=== PATIENT | female | born 1985 | race Hispanic/Latino ===

== ENCOUNTER 2021-05-20 14:37 | Inpatient (IN) | payer MEDICAID, SELFPAY ==
[2021-05-20 15:17] VITALS: BMI 29.0
[2021-05-20] MEDS ORDERED: Acetaminophen/Codeine 30-300mg Tablet PO PRN (15:27)
[2021-05-20] MEDS ORDERED: Ondansetron PF 4 MG/2 ML Vial IVP PRN (15:27)
[2021-05-20] MEDS ORDERED: Ibuprofen 800 MG TAB PO PRN (15:27)
[2021-05-20] MEDS ORDERED: Lidocaine 1% (PF) 30 ML VIAL SC PRN (15:27)
[2021-05-20] MEDS ORDERED: hydrALAZINE 20 MG/ML VIAL SLOW IVP PRN ×2 (15:27→20:45)
[2021-05-20] MEDS ORDERED: Promethazine HCl 25 MG/ML VIAL IM PRN (15:27)
[2021-05-20] MEDS ORDERED: Lactated Ringer's 1,000 ML IV SCH (15:30)
[2021-05-20] MEDS ORDERED: NS w/ Oxytocin 30 units 500 ML IV SCH (15:30)
[2021-05-20 15:49] LABS: Hemoglobin 12.8 g/dL (12.0-15.5); Mean Corpuscular HGB CONC 32.7 g/dL (32.0-36.0); Mean Corpuscular Hemoglobin 29.9 pg (27.0-33.0); Mean Corpuscular Volume 91.4 fl (81.6-98.3); Mean Platelet Volume 10.6 fl (7.4-10.4); Platelet Count 311 10x3/uL (150-450); RBC Distribution Width 14.3 % (11.5-14.5); Red Blood Cell (RBC) Count 4.28 10x6/uL (3.90-5.03); White Blood Cell (WBC) Count 16.4 10x3/uL (3.5-10.5)
[2021-05-20 16:15] LABS: Hep B Surf Ag Non-Reactive S/CO (NonReactive)
[2021-05-20 16:16] LABS: Syphilis Antibody Nonreactive (Nonreactive); Syphilis Antibody Index 0.05 S/CO (<1.00 Non-Reactive)
[2021-05-20 17:20] LABS: HBSAg Index 0.24 S/CO (0-0.99)
[2021-05-20 18:49] LABS: SARS-CoV-2 NAA Rapid Test Not Detected (NotDetected)
[2021-05-20] MEDS ORDERED: Boostrix 0.5 ML (Tdap) VIAL IM ONE (20:45)
[2021-05-20] MEDS ORDERED: Lanolin Ointment 7 GM TUBE TOP PRN (20:45)
[2021-05-20] MEDS ORDERED: Preparation H Ointment 28 GM TUBE PR PRN (20:45)
[2021-05-20] MEDS ORDERED: Bisacodyl 10 MG SUPP PR PRN (20:45)
[2021-05-20] MEDS ORDERED: Methylergonovine 0.2 MG TAB PO PRN (20:45)
[2021-05-20] MEDS ORDERED: Milk Of Magnesia 30 ML UDCUP PO PRN (20:45)
[2021-05-20] MEDS ORDERED: Methylergonovine 0.2 MG/ML VIAL IM PRN (20:45)
[2021-05-20] MEDS ORDERED: Misoprostol 200 MCG TAB VAG PRN (20:45)
[2021-05-20] MEDS: Ibuprofen 800 MG TAB PO SCH (21:59)
[2021-05-20] MEDS: Docusate Calcium (SURFAK) 240 MG CAP PO SCH (21:59)
[2021-05-21 04:44] LABS: Hemoglobin 11.3 g/dL (12.0-15.5)
[2021-05-21] MEDS: Ibuprofen 800 MG TAB PO SCH ×3 (05:23→21:41)
[2021-05-21] MEDS: Ferrous Sulfate 325 MG TAB PO SCH (07:38)
[2021-05-21] MEDS: Docusate Calcium (SURFAK) 240 MG CAP PO SCH ×2 (09:25→21:40)
[2021-05-21] MEDS: Prenatal Vitamin 1 TAB PO SCH (09:25)
[2021-05-22] MEDS: Ibuprofen 800 MG TAB PO SCH (05:46)
[2021-05-22] MEDS: Ferrous Sulfate 325 MG TAB PO SCH (07:12)
[2021-05-22 07:47] VITALS: BP 105/59; TEMP 98.9
[2021-05-22] MEDS: Prenatal Vitamin 1 TAB PO SCH (08:59)
[2021-05-22] MEDS: Docusate Calcium (SURFAK) 240 MG CAP PO SCH (08:59)
== END 2021-05-22 12:55 | disposition home or self-care (01) | DRG 807 ==
LOC: CSHLD/OP 14:37 → CSHLD 15:35 → CSHPED 20:34
PROVIDERS: ADMIT Family Medicine; ATTEND Family Medicine
PROC: 10E0XZZ Delivery of Products of Conception, External Approach (ICD-10-PCS; principal; 2021-05-20)
DX: O34.13 Maternal care for benign tumor of corpus uteri, third trimester (principal); Z37.0 Single live birth; D25.9 Leiomyoma of uterus, unspecified; Z20.822 Contact with and (suspected) exposure to COVID-19; Z3A.38 38 weeks gestation of pregnancy; O99.284 Endocrine, nutritional and metabolic diseases complicating childbirth; E28.2 Polycystic ovarian syndrome; O90.81 Anemia of the puerperium; D64.9 Anemia, unspecified; O99.344 Other mental disorders complicating childbirth; F32.A Depression, unspecified
CPT/HCPCS: 36416; 85014; 85018; 85027; 86780; 86850; 86900; 86901; 87340; 99285; U0002